=== PATIENT | female | born 1980 | race Caucasian/White ===

== ENCOUNTER 2021-01-05 17:51 | Emergency (ER) | payer OTHER ==
[2021-01-05 18:28] VITALS: TEMP 98.1
[2021-01-05 19:08] VITALS: PULSE 76; RESP 18
[2021-01-05] MEDS ORDERED: KETOROLAC 15 MG/ML 1 ML VIAL IM STA (19:16)
[2021-01-05] MEDS ORDERED: ORPHENADRINE 30 MG/ML 2 ML VIAL IM STA (19:16)
--- NOTE | 2021-01-05 19:35 | ED ---
General Adult HPI - General Chief complaint: Back Pain/Injury Stated complaint: back pain Time Seen by Provider: 01/05/21 19:04 Source: patient Mode of arrival: ambulatory Limitations: no limitations - History of Present Illness Initial comments: 40-year-old female with a past medical history of factor V Leiden, DVT, back pain presents to the emergency room for low back pain. Patient reports that 4 years ago she injured her back and had a slipped disc. Patient reports today she was pulling her grandma backwards up an incline to get into the house in a wheelchair. Her grandma leaned forward and patient jumped to catch her if she thought she was in a fall out of the chair. She felt a pop in her lower back and had pain. States this feels the same as 4 years ago. Patient denies any radiating pain down the legs. She denies weakness of the legs, bladder or bowel changes, saddle anesthesia, or fevers. Patient reports it hurts the worse to l ie flat and try to get up and stand or bend over. Feels better sitting in certain positions.Patient has no other complaints at this time including shortness of breath, chest pain, abdominal pain, nausea or vomiting, headache, or visual changes. - Related Data Previous Rx's Medication Instructions Recorded Cyclobenzaprine [Flexeril] 10 mg PO TID #14 tab 01/05/21 Allergies Allergy/AdvReac Type Severity Reaction Status Date / Time sumatriptan [From Imitrex] AdvReac Unknown Verified 01/05/21 18:24 Review of Systems ROS Statement: Those systems with pertinent positive or pertinent negative responses have been documented in the HPI. ROS Other: All systems not noted in ROS Statement are negative. Past Medical History Past Medical History: Deep Vein Thrombosis (DVT) Additional Past Medical History / Comment(s): factor V, migraines History of Any Multi-Drug Resistant Organisms: None Reported Past Surgical History: Hysterectomy Past Psychological History: No Psychological Hx Reported Smoking Status: Never smoker Past Alcohol Use History: None Reported Past Drug Use History: Marijuana General Exam Limitations: no limitations General appearance: alert, in no apparent distress Head exam: Present: atraumatic, normocephalic, normal inspection Eye exam: Present: normal appearance, PERRL, EOMI. Absent: scleral icterus, conjunctival injection, periorbital swelling ENT exam: Present: normal exam, mucous membranes moist Neck exam: Present: normal inspection, full ROM. Absent: tenderness, meningismus, lymphadenopathy Respiratory exam: Present: normal lung sounds bilaterally. Absent: respiratory distress, wheezes, rales, rhonchi, stridor Cardiovascular Exam: Present: regular rate, normal rhythm, normal heart sounds. Absent: systolic murmur, diastolic murmur, rubs, gallop, clicks GI/Abdominal exam: Present: soft, normal bowel sounds. Absent: distended, tenderness, guarding, rebound, rigid Extremities exam: Present: normal capillary refill (Capillary refill less than 2 seconds, DP pulse 2+ lower extremities bilaterally) Back exam: Absent: full ROM (Patient unable to extend her neutral position secondary to pain. Able to flex to about 60.), tenderness (No significant lumbar spine tenderness. Bilateral paraspinal lumbar tenderness.), CVA tenderness (R), CVA tenderness (L) Course Vital Signs 01/05/21 01/05/21 18:25 19:08 Temperature 98.1 F Pulse Rate 79 76 Respiratory 16 18 Rate Blood Pressure 86/56 116/74 O2 Sat by Pulse 98 Oximetry Medical Decision Making - Medical Decision Making Vitals are stable. Patient initially had a blood pressure of 86/50. However on repeat blood pressures she is normotensive. First repeat at 1908 was 116/74. Second repeat at 1945 was 120/74. Pain is musculoskeletal in nature. Worsening with position and reproducible. Patient denies have any blunt force trauma requiring an x-ray but I do need her to have an MRI. She reports she has a doctor and is not from here. Her appointment is at 3 tomorrow. Patient states she just needs some numbing for pain. States Toradol has helped in the past. She was given Toradol and Norflex. Patient was reevaluated and states she feels "200% better." Patient will be discharged home in stable condition. She will return for any worsening symptoms. Disposition Clinical Impression: Mechanical back pain Disposition: HOME SELF-CARE Condition: Good Instructions (If sedation given, give patient instructions): Acute Low Back Pain (ED) Additional Instructions: Please follow-up with your doctor at your appointment tomorrow. You would likely benefit from MRI. In the meantime you may take Flexeril or Tylenol for pain. If pain is severe take Tylenol 3. Do not [address] or operate machinery while taking Flexeril or Tylenol 3. If you have any worsening symptoms such as bladder or bowel changes, numbness of the groin or buttock, weakness of the legs, or fevers return immediately to the emergency room. Prescriptions: Cyclobenzaprine [Flexeril] 10 mg PO TID #14 tab Is patient prescribed a controlled substance at d/c from ED?: No Referrals: Nonstaff,Physician [Primary Care Provider] - 1-2 days Time of Disposition: 19:48
[2021-01-05] MEDS ORDERED: ACET/COD 300 MG/30 MG STARTER PACK 6 TAB BTL PO STA (19:48)
[2021-01-05 20:07] VITALS: BP 120/74
== END 2021-01-05 20:00 | disposition home or self-care (01) ==
LOC: EC 17:51
DX: M54.5 Low back pain (principal); D68.51 Activated protein C resistance; G43.909 Migraine, unspecified, not intractable, without status migrainosus; F12.90 Cannabis use, unspecified, uncomplicated; Z86.718 Personal history of other venous thrombosis and embolism
CPT/HCPCS: 99283; 96372 ×2; J2360; J1885